=== PATIENT | male | born 1990 ===

== ENCOUNTER 2018-09-16 22:18 | Emergency (ER) | payer SELFPAY ==
[2018-09-16] MEDS ORDERED: Sodium Chloride 0.9% 1,000 ML IV STA (23:27)
[2018-09-16 23:36] LABS: BASO # 0.01 K/mm3 (0.0-2.0); BASO % 0.1 % (0.0-3.0); HEMOGLOBIN 15.5 g/dL (14.0-18.0); LYMPH # 1.2 (1.2-3.4); LYMPH % 12.3 % (22.0-35.0); MEAN CELL VOLUME 83.9 fl (80.0-105.0); MEAN CORPUSCULAR HEMOGLOBIN 29.1 pg (25.0-35.0); MEAN CORPUSCULAR HGB CONC 34.7 g/dl (31.0-37.0); MEAN PLATELET VOLUME 9.7 fl (7.0-11.0); MONO # 0.7 (0.1-0.6); MONO % 6.6 % (1.0-6.0); RBC 5.33 10^6/uL (3.5-6.1); RED CELL DISTRIBUTION WIDTH 13.2 % (11.5-14.5); WHITE BLOOD COUNT 9.9 10^3/uL (4.5-11.0)
[2018-09-16 23:47] LABS: ALB/GLOB RATIO 1.1 (1.1-1.8); ALBUMIN 4.4 g/dL (3.0-4.8); ALT/SGPT 31 U/L (7-56); AST/SGOT 32 U/L (17-59); BLOOD UREA NITROGEN 12 mg/dL (7-21); CALCIUM 9.5 mg/dL (8.4-10.5); GFR NON-AFRICAN AMERICAN > 60; LIPASE 80 U/L (23-300)
--- NOTE | 2018-09-17 00:03 | ED PDOC ---
Arrival/HPI - General Chief Complaint: GI Problem Time Seen by Provider: 09/16/18 22:47 Historian: Patient - History of Present Illness Narrative History of Present Illness (Text): Ana Laura Fisher is a 28 year old male, with no significant past medical history, presenting to the emergency department with nausea, vomiting, diarrhea. Patient informs some associated right sided chest pain after vomiting that is burning and tight in nature. Patient states he had 5+ episodes of diarrhea since yesterday. He notes that that he has not had any diarrhea since after dinner today. Patient denies any melena or hematochezia. Patient also informs of 3 episodes of non bilious, nonbloody vomiting. Patient informs of a mild headache after vomting which has fully resolved in the ED. Headache was not worst of life or thunderclap like. Patient states he took theraflu this morning without much relief. Patient denies dizziness, shortness of breath, dyspnea on exertion, cough, back pain, neck pain / stiffness, or any other complaint. Time/Duration: Prior to Arrival Symptom Onset: Gradual Symptom Course: Unchanged Activities at Onset: Light Context: Home Past Medical History - Provider Review Nursing Documentation Reviewed: Yes - Cardiac Hx Cardiac Disorders: No - Pulmonary Hx Respiratory Disorders: Yes Hx Asthma: Yes - Neurological Hx Neurological Disorder: No - HEENT Hx HEENT Disorder: No - Renal Hx Renal Disorder: No - Endocrine/Metabolic Hx Endocrine Disorders: No - Hematological/Oncological Hx Blood Disorders: No - Integumentary Hx Dermatological Disorder: No - Musculoskeletal/Rheumatological Hx Musculoskeletal Disorders: No - Gastrointestinal Hx Gastrointestinal Disorders: No - Genitourinary/Gynecological Hx Genitourinary Disorders: No - Psychiatric Hx Psychophysiologic Disorder: No Hx Substance Use: No - Anesthesia Hx Anesthesia: No Family/Social History - Physician Review Nursing Documentation Reviewed: Yes Family/Social History: No Known Family HX Smoking Status: Vape Hx Alcohol Use: No Hx Substance Use: No Allergies/Home Meds Allergies/Adverse Reactions: Allergies No Known Allergies Allergy (Verified 09/16/18 22:34) Home Medications: Home Meds Medication Instructions Recorded Confirmed No Known Home Med 09/16/18 09/16/18 Review of Systems - Physician Review All systems were reviewed & negative as marked: Yes - Review of Systems Constitutional: Fevers. absent: Fatigue, Weight Change Eyes: absent: Vision Changes, Photophobia, Eye Pain ENT: absent: Hearing Changes, Tinnitus, TMJ Pain Respiratory: absent: SOB Cardiovascular: Chest Pain (secondary to vomiting). absent: Palpitations, Edema Gastrointestinal: Diarrhea, Nausea, Vomiting Genitourinary Male: absent: Dysuria, Frequency, Hematuria Musculoskeletal: absent: Arthralgias, Back Pain, Neck Pain Skin: absent: Rash, Pruritis Neurological: Headache. absent: Dizziness Psychiatric: absent: Anxiety, Depression Physical Exam Vital Signs Reviewed: Yes Vital Signs Temp Pulse Resp BP Pulse Ox 09/16/18 22:34 100.7 F H 92 H 17 139/78 100 Temperature: Febrile Blood Pressure: Normal Pulse: Regular Respiratory Rate: Normal Appearance: Positive for: Well-Appearing, Non-Toxic, Comfortable Pain Distress: None Mental Status: Positive for: Alert and Oriented X 3 - Systems Exam Head: Present: Atraumatic, Normocephalic Pupils: Present: PERRL Extroacular Muscles: Present: EOMI Conjunctiva: Present: Normal Ears: Present: Normal, NORMAL TM Mouth: Present: Moist Mucous Membranes Pharnyx: Present: Normal. No: ERYTHEMA, EXUDATE Nose (External): Present: Atraumatic. No: Abrasion Nose (Internal): Present: Normal Inspection Neck: Present: Normal Range of Motion. No: Meningeal Signs, MIDLINE TENDERNESS Respiratory/Chest: Present: Clear to Auscultation, Good Air Exchange. No: Respiratory Distress, Accessory Muscle Use Cardiovascular: Present: Regular Rate and Rhythm, Normal S1, S2. No: Murmurs Abdomen: No: Tenderness, Distention, Peritoneal Signs Back: Present: Normal Inspection. No: CVA Tenderness, Midline Tenderness Upper Extremity: Present: Normal Inspection, NORMAL PULSES, Neurovascularly Intact. No: Cyanosis, Edema Lower Extremity: Present: Normal Inspection, NORMAL PULSES, Neurovascularly Intact. No: Edema Neurological: Present: GCS=15, CN II-XII Intact, Speech Normal, Motor Func Grossly Intact, Normal Sensory Function, Normal Cerebellar Funct, Gait Normal, Memory Normal Skin: Present: Warm, Dry, Normal Color. No: Rashes Psychiatric: Present: Alert, Oriented x 3, Normal Insight, Normal Concentration Medical Decision Making ED Course and Treatment: 09/17/18 00:05 Impression: 28 year old male presents with nausea, vomiting, diarrhea. Diarrhea without recent antibiotics or recent travel. Non dark or bloody stool. No fall or trauma. No new medications. Diarrhea has largely improved. Chest pain likely due to vomiting given time course and burning sensation of vomiting. Headache fully resolved. Neuro exam unremarkable. Differential Diagnosis included but are not limited to: gastroenteritis vs viral syndrome Plan: -- EKG -- Chest X-ray -- Tylenol -- Zofran -- Reassess and disposition Prior Visits: Notes and results from previous visits were reviewed. Progress Notes: EKG Reviewed by me, shows: NSR @87bpm No stemi 09/17/18 00:36 CXR unremarkable per my read labs unremarkable pt in NAD, states cp has fully resolved and denies any headache currently denies any abdominal pain abd non-ttp no urinary complaints, tolerating clears here in ED clear for d/c home with return indications and f/u. Pt agreeable to plan - Lab Interpretations Lab Results: Total Bilirubin 0.4 mg/dL (0.2-1.3) 09/16/18 22:55 AST 32 U/L (17-59) 09/16/18 22:55 ALT 31 U/L (7-56) 09/16/18 22:55 Alkaline Phosphatase 75 U/L (38-126) 09/16/18 22:55 Total Protein 8.3 g/dL (5.8-8.3) 09/16/18 22:55 Albumin 4.4 g/dL (3.0-4.8) 09/16/18 22:55 Globulin 3.9 gm/dL 09/16/18 22:55 Albumin/Globulin Ratio 1.1 (1.1-1.8) 09/16/18 22:55 Lipase 80 U/L (23-300) 09/16/18 22:55 - RAD Interpretation Radiology Orders: 09/16/18 23:27 CHEST PORTABLE [RAD] Stat - Medication Orders Current Medication Orders: Sodium Chloride (Sodium Chloride 0.9%) 1,000 mls @ 999 mls/hr IV .Q1H1M STA Stop: 09/17/18 00:27 Last Admin: 09/16/18 23:00 Dose: 999 mls/hr eMAR Start Stop Document 09/16/18 23:00 CNR (Rec: 09/16/18 23:38 CNR [id number]) Intravenous Solution Start Date 09/16/18 Start Time 23:00 End Date 09/17/18 End time 00:00 Total Infusion Time 60 Discontinued Medications Acetaminophen (Tylenol 325mg Tab) 650 mg PO STAT STA Stop: 09/16/18 23:28 Last Admin: 09/16/18 23:38 Dose: 650 mg Ondansetron HCl (Zofran Inj) 4 mg IVP STAT STA Stop: 09/16/18 23:28 Last Admin: 09/16/18 23:39 Dose: 4 mg IVP Administration Document 09/16/18 23:39 CNR (Rec: 09/16/18 23:39 CNR [id number]) Charges for Administration # of IVP Administrations 1 - Scribe Statement The provider has reviewed the documentation as recorded by the Scribe Charlie Chilel Provider Scribe Attestation: All medical record entries made by the Scribe were at my direction and personally dictated by me. I have reviewed the chart and agree that the record accurately reflects my personal performance of the history, physical exam, medical decision making, and the department course for this patient. I have also personally directed, reviewed, and agree with the discharge instructions and disposition. Disposition/Present on Arrival - Present on Arrival Any Indicators Present on Arrival: No History of DVT/PE: No History of Uncontrolled Diabetes: No Urinary Catheter: No History of Decub. Ulcer: No History Surgical Site Infection Following: None - Disposition Have Diagnosis and Disposition been Completed?: Yes Diagnosis: Gastroenteritis, Viral syndrome, Chest pain, Headache Disposition: HOME/ ROUTINE Disposition Time: 00:34 Condition: STABLE Discharge Instructions (ExitCare): Headache, Adult, Chest Pain (DC), Chest Pain (ED), Gastroenteritis (ED) Additional Instructions: ANA LAURA FISHER, thank you for letting us take care of you today. Your provider was Henrry Cash and you were treated for DIARRHEA, HEADACHES, CHEST PAIN. The emergency medical care you received today was directed at your acute symptoms. If you were prescribed any medication, please fill it and take as directed. It may take several days for your symptoms to resolve. Return to the Emergency Department if your symptoms worsen, do not improve, or if you have any other problems. Please contact your doctor or call one of the physicians/clinics you have been referred to that are listed on the Patient Visit Information form that is included in your discharge packet. Bring any paperwork you were given at discharge with you along with any medications you are taking to your follow up visit. Our treatment cannot replace ongoing medical care by a primary care provider outside of the emergency department. Thank you for allowing the [facility] team to be part of your care today. If you had an X-Ray or CT scan: A Radiologist will review the ED reading if any change in treatment is needed we will contact you. If you had a blood, urine, or wound culture: It will take several days for the results, if any change in treatment is needed we will contact you. If you had an STI test: It will take 48 hours for the results. Please call after 1 week if you have not heard back. Referrals: Dave Flores MD [Staff Provider] - Follow up with primary Nida Mejia MD [Staff Provider] - Follow up with primary Pily Castellon MD [Medical Doctor] - Follow up with primary Naga Amador DO [Staff Provider] - Follow up with primary [employer] [facility] [Outside] - Follow up with primary [facility] [Outside] - Follow up with primary [facility] [place] - Follow up with primary Forms: [employer] (Lebanese), WORK NOTE
[2018-09-17 00:46] VITALS: BP 132/76; PULSE 87; RESP 18; TEMP 98.9; O2SAT 98
--- NOTE | 2018-09-17 09:17 | CARD ---
APPROVED REPORT Date of service: 09/16/2018 EKG Measurement Heart [id number] <Conclusion> Normal sinus rhythm Right axis deviation Abnormal ECG
--- NOTE | 2018-09-17 09:32 | RAD ---
Date of service: 09/16/2018 HISTORY: cp COMPARISON: No prior. TECHNIQUE: 1 view obtained. FINDINGS: LUNGS: No active pulmonary disease. PLEURA: No significant pleural effusion identified, no pneumothorax apparent. CARDIOVASCULAR: No aortic atherosclerotic calcification present. Normal cardiac size. No pulmonary vascular congestion. OSSEOUS STRUCTURES: No significant abnormalities. VISUALIZED UPPER ABDOMEN: Normal. OTHER FINDINGS: None. IMPRESSION: No active disease.
== END 2018-09-17 00:52 | disposition home or self-care (01) ==
LOC: EDSEX → ED 22:18 → MERGE 22:18 → ED 09-17 00:52
DX: K52.9 Noninfective gastroenteritis and colitis, unspecified (principal); B34.9 Viral infection, unspecified; R07.9 Chest pain, unspecified; R51 Headache
CPT/HCPCS: 71045; 80053; 83690; 85025; 87804; 93005; 96361; 96374; 99283; J2405; J7030